=== PATIENT | male | born 1995 | race Caucasian/White ===

== ENCOUNTER → 2018-06-10 | Outpatient (CLI) | payer BC, OTHER ==
--- NOTE | 2018-06-10 21:22 | CT ---
EXAMINATION TYPE: CT abdomen wo con DATE OF EXAM: 06/10/2018 HISTORY: hematuria/rt flank pain per order. History of small left kidney per patient. CT DLP: 191 mGycm. Automated Exposure Control for Dose Reduction was Utilized. TECHNIQUE: CT scan of the abdomen is performed without oral or IV contrast. COMPARISON: CT abdomen and pelvis July 17, 2011 FINDINGS: Within the limitations of a non-contrast study, the following observations are made. LUNG BASES: No significant abnormality is appreciated. LIVER/GB: Contracted gallbladder incidentally noted. Liver is mildly enlarged PANCREAS: No significant abnormality is seen. SPLEEN: No significant abnormality is seen. ADRENALS: No significant abnormality is seen. KIDNEYS: Left kidney is not visualized similar prior study. No right-sided renal calculi or hydroneph rosis is present, compensatory hypertrophy is felt present BOWEL: Normal-appearing appendix is seen from base of cecum. There is no suspicious small or large rick wel dilatation. LYMPH NODES: No greater than 1cm abdominal lymph nodes are appreciated. OSSEOUS STRUCTURES: Bilateral pars defects L5 level without significant spondylolisthesis. OTHER: No significant additional abnormality is seen. IMPRESSION: Absent or atrophic left kidney redemonstrated. No right-sided renal calculus or hydroneph rosis.
== END | disposition home or self-care (01) ==
LOC: RADCTMAIN 18:26
PROVIDERS: ATTEND Family Medicine
DX: R10.9 Unspecified abdominal pain (principal)
CPT/HCPCS: 74150

== ENCOUNTER 2019-01-18 21:14 | Emergency (ER) | payer BC, OTHER ==
--- NOTE | 2019-01-18 22:08 | ED ---
Chest Pain HPI - General Chief Complaint: Chest Pain Stated Complaint: Rib Pain, ROBERT Time Seen by Provider: 01/18/19 21:28 Source: patient Mode of arrival: ambulatory Limitations: no limitations - History of Present Illness Initial Comments: This patient is a 23-year-old presents to [facility] man who presents with left- sided pleuritic chest pain that started approximately an hour ago while he was playing video games. Patient denies trauma. He states that the pain is sharp, mild however when he takes a deep breath the pain becomes moderate. It also sometimes worse with movement . He indicates the lateral aspect of the left chest at the anterior axillary line. Below the level of the nipple. Patient has not noted any other worsening or relieving factors. He has not had any associated symptoms. The patient declines analgesia at my initial history and physical MD Complaint: chest pain Onset/Timin -: hour(s) Onset: during rest Pain Location: left chest Severity: moderate Quality: sharp Consistency: constant Improves With: nothing Worsens With: inspiration Treatments Prior to Arrival: none - Related Data Previous Rx's Medication Instructions Recorded Ibuprofen 800 mg PO TID #20 tablet 01/18/19 Allergies Allergy/AdvReac Type Severity Reaction Status Date / Time amoxicillin Allergy Rash/Hives Verified 01/18/19 22:56 Review of Systems ROS Statement: Those systems with pertinent positive or pertinent negative responses have been documented in the HPI. ROS Other: All systems not noted in ROS Statement are negative. Constitutional: Denies: fever, chills Respiratory: Denies: cough, dyspnea Cardiovascular: Reports: as per HPI, chest pain. 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 History of Any Multi-Drug Resistant Organisms: MRSA Date of last positivie culture/infection: 07/04/16 MDRO Source:: LEFT KNEE Additional Past Surgical History / Comment(s): VEROCELE Additional Past Anesthesia/Blood Transfusion Reaction / Comment(s): takes longer to take affect Past Psychological History: No Psychological Hx Reported Smoking Status: Never smoker Past Alcohol Use History: Rare Past Drug Use History: Marijuana - Past Family History Mother Family Medical History: No Reported History General Exam Limitations: no limitations General appearance: alert, in no apparent distress Head exam: Present: atraumatic, normocephalic Eye exam: Present: normal appearance. Absent: scleral icterus, conjunctival injection ENT exam: Present: normal oropharynx Neck exam: Present: normal inspection Respiratory exam: Present: normal lung sounds bilaterally. Absent: respiratory distress, wheezes, rales, rhonchi, stridor, chest wall tenderness, accessory muscle use, decreased breath sounds, prolonged expiratory Cardiovascular Exam: Present: regular rate, normal rhythm, normal heart sounds. Absent: systolic murmur, diastolic murmur, rubs, gallop GI/Abdominal exam: Present: soft. Absent: distended, tenderness, guarding, rebound, organomegaly, mass Extremities exam: Present: normal inspection, normal capillary refill. Absent: pedal edema, calf tenderness Back exam: Present: normal inspection. Absent: CVA tenderness (R), CVA tenderness (L) Skin exam: Present: warm, dry, intact, normal color. Absent: rash Course Vital Signs 01/18/19 21:22 Temperature 98.9 F Pulse Rate 70 Respiratory 18 Rate Blood Pressure 139/81 O2 Sat by Pulse 98 Oximetry Disposition Clinical Impression: Pleuritic chest pain Disposition: HOME SELF-CARE Condition: Good Instructions (If sedation given, give patient instructions): Pleurisy (DC) Prescriptions: Ibuprofen 800 mg PO TID #20 tablet Is patient prescribed a controlled substance at d/c from ED?: No Referrals: None,Stated [Primary Care Provider] - 1-2 days
--- NOTE | 2019-01-18 22:19 | XR ---
EXAM: XR Chest, 2 Views CLINICAL HISTORY: Pain TECHNIQUE: Frontal and lateral views of the chest. COMPARISON: No relevant prior studies available. FINDINGS: Lungs: Unremarkable. No consolidation. Pleural space: Unremarkable. No pneumothorax. Heart: Unremarkable. No cardiomegaly. Mediastinum: Unremarkable. Bones/joints: Unremarkable. IMPRESSION: Normal chest x-rays.
[2019-01-18 23:01] LABS: ALT 21 U/L (21-72); AST 35 U/L (17-59); Albumin 4.7 g/dL (3.5-5.0); Alkaline Phosphatase 67 U/L (38-126); Anion Gap 9 mmol/L; Blood Urea Nitrogen 17 mg/dL (9-20); Calcium 10.3 mg/dL (8.4-10.2); Carbon Dioxide 25 mmol/L (22-30); Chloride 106 mmol/L (98-107); Glucose 95 mg/dL (74-99); Potassium 3.7 mmol/L (3.5-5.1); Sodium 140 mmol/L (137-145); Total Bilirubin 0.5 mg/dL (0.2-1.3); Total Protein 7.5 g/dL (6.3-8.2)
[2019-01-18] MEDS ORDERED: IBUPROFEN 400 MG TAB PO STA (23:12)
[2019-01-18] MEDS ORDERED: HYDROcodone/APAP 5-325MG 1 EACH TAB PO STA (23:23)
[2019-01-18 23:37] VITALS: BP 131/84; PULSE 55; RESP 18; TEMP 98.8
== END 2019-01-18 23:43 | disposition home or self-care (01) ==
LOC: EC 21:14
DX: R07.81 Pleurodynia (principal); Z86.14 Personal history of Methicillin resistant Staphylococcus aureus infection; Z88.0 Allergy status to penicillin
CPT/HCPCS: 36415; 71046; 80053; 85379; 93005; 99285

== ENCOUNTER 2019-08-21 09:03 | Day surgery (SDC) | payer BC ==
[2019-08-16 14:52] VITALS: BMI 25.7
[~2019-08-21 09:03] MED LIST: LACTATED RINGERS 1,000 ML IV SCH; LIDOCAINE 1% 20 ML VIAL (10MG/ML) FOR IV START INTRADERMA PRN
[2019-08-21 09:43] VITALS: TEMP 98.8
[2019-08-21] MEDS ORDERED: LIDOCAINE 1% INJ 10MG/ML (20 ML MDV) ONE (10:03)
[2019-08-21] MEDS ORDERED: PROPOFOL 10 MG/ML 20 ML VIAL IV ONE (10:03)
--- NOTE | 2019-08-21 10:11 | P.GSHP ---
History of Present Illness H&P Date: 08/21/19 Chief Complaint: GI bleed This a 24-year-old male who presents today for colonoscopy. He's had issues with GI bleed. He's had melanotic stools. 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 SX INTERVENTION FOR STAPH(MRSA) IN LT KNEE Additional Past Anesthesia/Blood Transfusion Reaction / Comment(s): takes longer to take affect Smoking Status: Never smoker - Past Family History Mother Family Medical History: No Reported History Medications and Allergies Home Medications Medication Instructions Recorded Confirmed Type No Known Home Medications 08/16/19 08/21/19 History Allergies Allergy/AdvReac Type Severity Reaction Status Date / Time amoxicillin Allergy Rash/Hives Verified 08/21/19 09:37 Surgical - Exam Vital Signs Temp Pulse Resp BP Pulse Ox 98.8 F 71 16 133/62 98 08/21/19 09:40 08/21/19 09:40 08/21/19 09:40 08/21/19 09:40 08/21/19 09:40 - General well developed, well nourished, no distress - Eyes PERRL - ENT normal pinna - Neck no masses - Respiratory normal expansion - Cardiovascular Rhythm: regular - Abdomen Abdomen: soft, non tender Assessment and Plan Assessment: GI bleed. We'll perform colonoscopy.
--- NOTE | 2019-08-21 10:23 | P.OP ---
Date of Procedure: 08/21/19 Preoperative Diagnosis: GI bleed Postoperative Diagnosis: Internal hemorrhoids Procedure(s) Performed: Colonoscopy Anesthesia: MAC Surgeon: Ady Chris Pathology: none sent Condition: stable Disposition: PACU Description of Procedure: Patient's placed on the endoscopy table in the lateral position. He received IV sedation. Digital rectal exam was performed which revealed internal hemorrhoids. The flexible colonoscope was then placed patient anus and passed throughout the entire colon. The ileocecal valve was visualized. The cecum, ascending and transverse colon appeared normal. The descending and; appeared normal. The scope was then brought back the rectum and this appeared normal. Scope was withdrawn through the anus and some intraluminal hemorrhage noted. Scope was withdrawn for patient. There was no evidence of any significant GI bleed the colon. It was presumed at his previous GI bleeding is due to internal hemorrhoids.
[2019-08-21 10:27] VITALS: RESP 18
[2019-08-21 10:43] VITALS: BP 115/65; PULSE 62
== END 2019-08-21 11:33 | disposition home or self-care (01) ==
LOC: ORWHC2ENDO 09:03
PROVIDERS: ATTEND Surgery
DX: K64.8 Other hemorrhoids (principal); K92.1 Melena; J45.909 Unspecified asthma, uncomplicated; Z88.0 Allergy status to penicillin; Z90.5 Acquired absence of kidney; Z86.14 Personal history of Methicillin resistant Staphylococcus aureus infection
CPT/HCPCS: 45378; J2001; J2704

== ENCOUNTER 2019-10-22 01:08 | Emergency (ER) | payer BC ==
[2019-10-22 01:26] VITALS: BP 130/80; PULSE 54; RESP 15; TEMP 98
[2019-10-22] MEDS ORDERED: BUPIVACAINE (PF) 0.5% 30 ML VIAL MISCELLANE STA (01:41)
[2019-10-22] MEDS ORDERED: ACET/COD 300 MG/30 MG STARTER PACK 6 TAB BTL PO STA (01:42)
[2019-10-22] MEDS ORDERED: KETOROLAC 30 MG/ML 1 ML VIAL IM STA (01:59)
--- NOTE | 2019-10-22 02:01 | ED ---
ENT HPI - General Chief complaint: Dental/Oral Stated complaint: Dental Pain Time Seen by Provider: 10/22/19 01:32 Source: patient Mode of arrival: ambulatory Limitations: no limitations - History of Present Illness Initial comments: 24-year-old male patient presents to the emergency department today for evaluation of right lower dental pain. Patient states he had a root canal performed 3 days ago. Patient states he started developing pain to the same area earlier today. Patient states the pain has significant only worsened. States he has taken multiple doses of ibuprofen without relief. Denies any fever or chills. Denies any facial swelling. Denies nausea or vomiting. Denies any trismus or difficulty swallowing. - Related Data Home Medications Medication Instructions Recorded Confirmed Clindamycin HCl 300 mg PO Q6HR 10/22/19 10/22/19 Allergies Allergy/AdvReac Type Severity Reaction Status Date / Time amoxicillin Allergy Rash/Hives Verified 10/22/19 01:26 Review of Systems ROS Statement: Those systems with pertinent positive or pertinent negative responses have been documented in the HPI. ROS Other: All systems not noted in ROS Statement are negative. 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 SX INTERVENTION FOR STAPH(MRSA) IN LT KNEE Additional Past Anesthesia/Blood Transfusion Reaction / Comment(s): takes longer to take affect Past Psychological History: No Psychological Hx Reported Smoking Status: Current every day smoker Past Alcohol Use History: None Reported Past Drug Use History: None Reported - Past Family History Mother Family Medical History: No Reported History General Exam Limitations: no limitations General appearance: alert, in no apparent distress, other (Physical well- developed, well-nourished adult male patient in no acute distress. Vital signs upon presentation are temperature 98.0F, pulse 54, respirations 15, blood pressure 130/80, pulse ox 99% on room air) Eye exam: Present: normal appearance, PERRL, EOMI. Absent: scleral icterus, conjunctival injection, periorbital swelling ENT exam: Present: normal exam, normal oropharynx, mucous membranes moist, other (Tooth appears normal. There is temperary filling present. No gingival erythema or hyperplasia. No evidence of drainable abscess.) Respiratory exam: Present: normal lung sounds bilaterally. Absent: respiratory distress, wheezes, rales, rhonchi, stridor Cardiovascular Exam: Present: regular rate, normal rhythm, normal heart sounds. Absent: systolic murmur, diastolic murmur, rubs, gallop, clicks Neurological exam: Present: alert, oriented X3, CN II-XII intact Psychiatric exam: Present: normal affect, normal mood Skin exam: Present: warm, dry, intact, normal color. Absent: rash Course Vital Signs 10/22/19 01:22 Temperature 98.0 F Pulse Rate 54 L Respiratory 15 Rate Blood Pressure 130/80 O2 Sat by Pulse 99 Oximetry Procedures - Nerve Block Consent Obtained: verbal consent Local Anesthetic Used: Marcaine 0.5% Amount of anesthesia used: 2 Side: right Intraoral Nerve Block: inferior alveolar Procedure Successful: No Complications: none Patient Tolerated Procedure: well, no complications Medical Decision Making - Medical Decision Making 24-year-old male patient presents to the emergency department for evaluation of right lower dental pain. Physical examination is relatively unremarkable. No trismus or difficulty swallowing. Did perform intraoral nerve block. He is given pain medication is a comatose him. He is instructed to dentistry for recheck as as possible. Return parameters were discussed in detail. He verbalizes understanding and agrees with this plan. Disposition Clinical Impression: Pain, dental, History of root canal procedure Disposition: HOME SELF-CARE Condition: Good Instructions (If sedation given, give patient instructions): Toothache (ED) Additional Instructions: Up with her dentist Wednesday for further evaluation. Take pain medication sparingly for symptom relief. Return to the emergency room immediately for any new, worsening, or concerning symptoms. Is patient prescribed a controlled substance at d/c from ED?: No Referrals: Gill Gibson DO [Primary Care Provider] - 1-2 days Time of Disposition: 02:00
== END 2019-10-22 02:15 | disposition home or self-care (01) ==
LOC: EC 01:08
DX: K08.89 Other specified disorders of teeth and supporting structures (principal); Z98.818 Other dental procedure status; Q60.0 Renal agenesis, unilateral; F17.200 Nicotine dependence, unspecified, uncomplicated; Z88.0 Allergy status to penicillin; Z86.14 Personal history of Methicillin resistant Staphylococcus aureus infection
CPT/HCPCS: 99282; 64400; 96372; J1885

== ENCOUNTER 2019-10-24 08:02 | Emergency (ER) | payer BC ==
[2019-10-24 08:06] VITALS: BP 148/94; PULSE 58; RESP 19; TEMP 97.7
[2019-10-24] MEDS ORDERED: ONDANSETRON ODT 4 MG TAB PO STA (08:16)
--- NOTE | 2019-10-24 08:23 | ED ---
General Adult HPI - General Chief complaint: Nausea/Vomiting/Diarrhea Stated complaint: reaction to meds Time Seen by Provider: 10/24/19 08:09 Source: patient, RN notes reviewed Mode of arrival: ambulatory Limitations: no limitations - History of Present Illness Initial comments: 24-year-old male with a past medical history of asthma, solitary kidney presents to the emergency department for chief complaint of nausea patient states that he has a dental infection and took a steroid for the first time this morning. States that shortly after he started to feel flushed and nauseous. States he did vomit 4 times. Patient states that he feels as flushed and sweaty at this time but does still have some nausea. Patient has not vomited in about an hour. States he was at work and in order to leave work he needed to be seen to have a work note. Denies abdominal pain. Denies fevers. Patient requesting something to drink. Patient has no other complaints at this time including shortness of breath, chest pain, abdominal pain, headache, or visual changes. - Related Data Home Medications Medication Instructions Recorded Confirmed Clindamycin HCl 300 mg PO Q6HR 10/22/19 10/22/19 Allergies Allergy/AdvReac Type Severity Reaction Status Date / Time amoxicillin Allergy Rash/Hives Verified 10/22/19 01:26 Review of Systems ROS Statement: Those systems with pertinent positive or pertinent negative responses have been documented in the HPI. ROS Other: All systems not noted in ROS Statement are negative. 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 SX INTERVENTION FOR STAPH(MRSA) IN LT KNEE Additional Past Anesthesia/Blood Transfusion Reaction / Comment(s): takes longer to take affect Past Psychological History: No Psychological Hx Reported Smoking Status: Current every day smoker Past Alcohol Use History: None Reported Past Drug Use History: Marijuana - Past Family History Mother Family Medical History: No Reported History General Exam Limitations: no limitations General appearance: alert, in no apparent distress Head exam: Present: atraumatic, normocephalic, normal inspection Eye exam: Present: normal appearance, PERRL, EOMI. Absent: scleral icterus, conjunctival injection, periorbital swelling ENT exam: Present: normal exam, mucous membranes moist Neck exam: Present: normal inspection, full ROM. Absent: tenderness, meningismus, lymphadenopathy Respiratory exam: Present: normal lung sounds bilaterally. Absent: respiratory distress, wheezes, rales, rhonchi, stridor Cardiovascular Exam: Present: regular rate, normal rhythm, normal heart sounds. Absent: systolic murmur, diastolic murmur, rubs, gallop, clicks GI/Abdominal exam: Present: soft, normal bowel sounds. Absent: distended, tenderness, guarding, rebound, rigid Neurological exam: Present: alert Skin exam: Present: warm, dry, intact, normal color. Absent: rash Course Vital Signs 10/24/19 08:04 Temperature 97.7 F Pulse Rate 58 L Respiratory 19 Rate Blood Pressure 148/94 O2 Sat by Pulse 99 Oximetry Medical Decision Making - Medical Decision Making Vitals are stable. Patient has vomited 4 times in the past 2 hours which occurred shortly after he took a steroid for the first time. Patient states he is doing much better upon arrival to the ER but does still have some nausea. States that he had to come be seen because in order to leave work he needed a note. Patient's was given sublingual Zofran and is tolerating oral intake. Patient symptoms have improved significant only. Patient will be discharged home to follow up with primary care in stable condition. If he has any wo rsening symptoms she will return here to the emergency department. Disposition Clinical Impression: Nausea, Medication reaction Disposition: HOME SELF-CARE Condition: Good Instructions (If sedation given, give patient instructions): Acute Nausea and Vomiting (ED) Additional Instructions: Please take zofran as needed for nausea. Drink small sips of fluids to prevent vomiting and eat a bland diet consisting of bananas, rice, applesauce and toast. Follow up with primary care in 1-2 days. Return to the emergency department if you have any worsening symptoms. Is patient prescribed a controlled substance at d/c from ED?: No Referrals: Gill Gibson DO [Primary Care Provider] - 1-2 days Time of Disposition: 08:24
[2019-10-24] MEDS ORDERED: ONDANSETRON 4 MG ODT STARTER PACK 2 TAB BTL PO STA (08:51)
== END 2019-10-24 09:03 | disposition home or self-care (01) ==
LOC: EC 08:02
DX: R11.0 Nausea (principal); T38.0X5A Adverse effect of glucocorticoids and synthetic analogues, initial encounter; F17.200 Nicotine dependence, unspecified, uncomplicated; Z88.0 Allergy status to penicillin
CPT/HCPCS: 99283; S0119

== ENCOUNTER 2023-04-03 18:54 | Emergency (ER) | payer BC ==
[2023-04-03] MEDS ORDERED: diphenhydrAMINE 50 MG/ML 1 ML VIAL IVP STA (19:26)
[2023-04-03] MEDS ORDERED: FAMOTIDINE 20 MG/2 ML VIAL IV STA (19:26)
[2023-04-03] MEDS ORDERED: methylPREDNISolone SOD SUCCI 125 MG/2 ML VIAL IV STA (19:26)
--- NOTE | 2023-04-03 19:26 | ED ---
General Adult HPI - General Chief complaint: Allergic Reaction Stated complaint: Allergic Reaction/ROBERT Time Seen by Provider: 04/03/23 19:07 Source: patient, RN notes reviewed, old records reviewed Mode of arrival: ambulatory Limitations: no limitations - History of Present Illness Initial comments: 27-year-old male presenting with suspected ALLERGIC reaction. Just prior to arrival the patient had developed sudden onset diffuse raised erythematous rash and itching, difficulty breathing and one episode of vomiting. He states he had eaten beef and chocolate. Which is eaten many times in the past without ALLERGIC symptoms. Patient is in extremis at the time of arrival and history is limited. - Related Data Previous Rx's Medication Instructions Recorded EPINEPHrine (Auto Inject) [Epipen] 0.3 mg IM ONCE PRN #2 each 04/03/23 Famotidine [Pepcid] 20 mg PO DAILY #7 tablet 04/03/23 diphenhydrAMINE [Benadryl] 25 mg PO TID #21 capsule 04/03/23 predniSONE 50 mg PO DAILY #5 tab 04/03/23 Allergies Allergy/AdvReac Type Severity Reaction Status Date / Time amoxicillin Allergy Rash/Hives Verified 04/03/23 19:48 Review of Systems ROS Statement: Those systems with pertinent positive or pertinent negative responses have been documented in the HPI. ROS Other: All systems not noted in ROS Statement are negative. 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 SX INTERVENTION FOR STAPH(MRSA) IN LT KNEE Additional Past Anesthesia/Blood Transfusion Reaction / Comment(s): takes longer to take affect Past Psychological History: No Psychological Hx Reported Past Alcohol Use History: None Reported Past Drug Use History: Marijuana - Past Family History Mother Family Medical History: No Reported History General Exam Limitations: no limitations General appearance: alert, in distress Head exam: Present: atraumatic, normocephalic Eye exam: Present: PERRL, conjunctival injection ENT exam: Present: normal oropharynx Respiratory exam: Present: respiratory distress, accessory muscle use, decreased breath sounds Cardiovascular Exam: Present: normal rhythm, tachycardia GI/Abdominal exam: Present: soft. Absent: distended, tenderness, guarding Extremities exam: Absent: joint swelling, calf tenderness Neurological exam: Present: alert, oriented X3 Psychiatric exam: Present: anxious Skin exam: Present: erythema, urticaria Course Vital Signs 04/03/23 04/03/23 04/03/23 18:58 19:00 19:43 Temperature 98.2 F Pulse Rate 142 H 80 Respiratory 20 36 H 18 Rate Blood Pressure 148/84 153/74 O2 Sat by Pulse 99 99 Oximetry 04/03/23 21:00 Temperature 98.8 F Pulse Rate 91 Respiratory 16 Rate Blood Pressure 149/77 O2 Sat by Pulse 97 Oximetry - Reevaluation(s) Reevaluation #1: 04/03/23 21:57 Further evaluation after the patient had symptoms resolved he does believe this was related to the chocolate bar that he ate. He has never had a previous ALLERGIC reaction to chocolate but when it was he only new food that he has not eaten in some time. Reevaluation #2: 04/03/23 21:57 Patient's feeling well, no dyspnea, no further vomiting, rash has completely resolved. Medical Decision Making - Medical Decision Making Was pt. sent in by a medical professional or institution (, PA, OFFENDER JOB RETENTION SPECIALIST, urgent care, hospital, or longterm...) When possible be specific @ -[No] Did you speak to anyone other than the patient for history (EMS, parent, family, police, friend...)? What history was obtained from this source @ -[No] Did you review nursing and triage notes (agree or disagree)? Why? @ -[I reviewed and agree with nursing and triage notes] Were old charts reviewed (outside hosp., previous admission, EMS record, old EKG, old radiological studies, urgent care reports/EKG's, longterm records)? Report findings @ -[No old charts were reviewed] Differential Diagnosis (chest pain, altered mental status, abdominal pain women, abdominal pain men, vaginal bleeding, weakness, fever, dyspnea, syncope, h eadache, dizziness, GI bleed, back pain, seizure, CVA, palpatations, mental health, musculoskeletal)? @Food ALLERGY, anaphylaxis EKG interpreted by me (3pts min.). @ -[As above] X-rays interpreted by me (1pt min.). @ -[None done] CT interpreted by me (1pt min.). @ -[None done] U/S interpreted by me (1pt. min.). @ -[None done] What testing was considered but not performed or refused? (CT, X-rays, U/S, labs)? Why? @ -[None] What meds were considered but not given or refused? Why? @ -[None] Did you discuss the management of the patient with other professionals (professionals i.e. , PA, OFFENDER JOB RETENTION SPECIALIST, lab, RT, psych nurse, clinical social worker, high school guidance counselor, teacher, international first officer, case work aide)? Give summary @ -[No] Was smoking cessation discussed for >3mins.? @ -[No] Was critical care preformed (if so, how long)? @ -[yes 35 Were there social determinants of health that impacted care today? How? (Homelessness, low income, unemployed, alcoholism, drug addiction, transportation, low edu. Level, literacy, decrease access to med. care, residential, rehab)? @ -[No] Was there de-escalation of care discussed even if they declined (Discuss DNR or withdrawal of care, Hospice)? DNR status @ -[No] What co-morbidities impacted this encounter? (DM, HTN, Smoking, COPD, CAD, Cancer, CVA, ARF, Chemo, Hep., AIDS, mental health diagnosis, sleep apnea, morbid obesity)? @ -[None] Was patient admitted / discharged? Hospital course, mention meds given and route, prescriptions, significant lab abnormalities, going to OR and other per tinent info. @ -0.5-year-old male presents in extremis, he is diffusely erythematous with urticarial rash throughout his entire body. He's in severe respiratory distress tachycardic in the 150s, he's had episodes of vomiting. Patient is given intramuscular IM, IV is established was given Pepcid, Benadryl, Solu-Medrol and IV fluids. He is observed for 3 hours in the emergency department with complete resolution of symptoms. He is very eager for discharge. He has no chest pain, no dyspnea, no abdominal pain or nausea. His rash is completely resolved. He is advised to avoid chocolate and to be specifically careful with dairy. He is prescribed an EpiPen, steroids, Pepcid, Benadryl. Undiagnosed new problem with uncertain prognosis? @ -[No] Drug Therapy requiring intensive monitoring for toxicity (Heparin, Nitro, Insulin, Cardizem)? @ -[No] Were any procedures done? @ -[No] Diagnosis/symptom? @ -[Anaphylaxis, suspect chocolate ALLERGY Acute, or Chronic, or Acute on Chronic? @ -Acute Uncomplicated (without systemic symptoms) or Complicated (systemic symptoms)? @ -[Complicated Side effects of treatment? @ -[No] Exacerbation, Progression, or Severe Exacerbation? @ -[No] Poses a threat to life or bodily function? How? (Chest pain, [place], [place], pneumonia, PE, COPD, DKA, ARF, appy, cholecystitis, CVA, Diverticulitis, Homicidal, Suicidal, threat to staff... and all critical care pts) @ -Yes, anaphylaxis - Lab Data Result diagrams: 04/03/23 19:41 04/03/23 19:41 Lab Results 04/03/23 04/03/23 04/03/23 Range/Units 19:41 19:41 19:41 WBC 9.0 (3.8-10.6) k/uL RBC 5.69 (4.30-5.90) m/uL Hgb 15.0 (13.0-17.5) gm/dL Hct 47.6 (39.0-53.0) % MCV 83.6 (80.0-100.0) fL MCH 26.4 (25.0-35.0) pg MCHC 31.6 (31.0-37.0) g/dL RDW 13.6 (11.5-15.5) % Plt Count 375 (150-450) k/uL MPV 7.6 Neutrophils % 72 % Lymphocytes % 20 % Monocytes % 6 % Eosinophils % 1 % Basophils % 0 % Neutrophils # 6.5 (1.3-7.7) k/uL Lymphocytes # 1.8 (1.0-4.8) k/uL Monocytes # 0.5 (0-1.0) k/uL Eosinophils # 0.1 (0-0.7) k/uL Basophils # 0.0 (0-0.2) k/uL PT 10.1 (9.0-12.0) sec INR 0.9 (<1.2) APTT 23.8 (22.0-30.0) sec Sodium 137 (137-145) mmol/L Potassium 3.6 (3.5-5.1) mmol/L Chloride 104 (98-107) mmol/L Carbon Dioxide 24 (22-30) mmol/L Anion Gap 9 mmol/L BUN 22 H (9-20) mg/dL Creatinine 1.18 (0.66-1.25) mg/dL Est GFR (CKD-EPI)AfAm >90 (>60 ml/min/1.73 sqM) Est GFR (CKD-EPI)NonAf 85 (>60 ml/min/1.73 sqM) Glucose 145 H (74-99) mg/dL Calcium 8.8 (8.4-10.2) mg/dL Total Bilirubin 0.3 (0.2-1.3) mg/dL AST 54 (17-59) U/L ALT 36 (4-49) U/L Alkaline Phosphatase 43 (38-126) U/L Total Protein 6.9 (6.3-8.2) g/dL Albumin 4.1 (3.5-5.0) g/dL Critical Care Time Critical Care Time: Yes Total Critical Care Time: 35 Disposition Clinical Impression: Anaphylaxis, Food allergy Disposition: HOME SELF-CARE Condition: Good Instructions (If sedation given, give patient instructions): Anaphylaxis (ED) Additional Instructions: Please be very careful with chocolate and dairy. Please return to the emergency department with any worsening or changing symptoms. Prescriptions: diphenhydrAMINE [Benadryl] 25 mg PO TID #21 capsule EPINEPHrine (Auto Inject) [Epipen] 0.3 mg IM ONCE PRN #2 each PRN Reason: Anaphylaxis Famotidine [Pepcid] 20 mg PO DAILY #7 tablet predniSONE 50 mg PO DAILY #5 tab Is patient prescribed a controlled substance at d/c from ED?: No Referrals: Gill Gibson DO [Primary Care Provider] - 1-2 days Time of Disposition: 22:02
[2023-04-03 19:56] LABS: Basophils % (A) 0 %; Eosinophils # (A) 0.1 k/uL (0-0.7); Eosinophils % (A) 1 %; HCT 47.6 % (39.0-53.0); Lymphocytes # (A) 1.8 k/uL (1.0-4.8); Lymphocytes % (A) 20 %; MCH 26.4 pg (25.0-35.0); MCHC 31.6 g/dL (31.0-37.0); MCV 83.6 fL (80.0-100.0); Mean Platelet Volume 7.6; Monocytes # (A) 0.5 k/uL (0-1.0); Monocytes % (A) 6 %; Neutrophils # (A) 6.5 k/uL (1.3-7.7); Neutrophils % (A) 72 %; Platelet Count 375 k/uL (150-450); RBC 5.69 m/uL (4.30-5.90); RDW 13.6 % (11.5-15.5)
[2023-04-03 20:31] LABS: INR 0.9 (<1.2); Partial Thromboplastin Time 23.8 sec (22.0-30.0); Prothrombin Time 10.1 sec (9.0-12.0)
[2023-04-03 20:44] LABS: ALT 36 U/L (4-49); AST 54 U/L (17-59); African American GFR (CKD) >90 (>60 ml/min/1.73 sqM); Albumin 4.1 g/dL (3.5-5.0); Alkaline Phosphatase 43 U/L (38-126); Anion Gap 9 mmol/L; Blood Urea Nitrogen 22 mg/dL (9-20); Calcium 8.8 mg/dL (8.4-10.2); Carbon Dioxide 24 mmol/L (22-30); Chloride 104 mmol/L (98-107); Glucose 145 mg/dL (74-99); Non-African American GFR(CKD) 85 (>60 ml/min/1.73 sqM); Potassium 3.6 mmol/L (3.5-5.1); Sodium 137 mmol/L (137-145); Total Bilirubin 0.3 mg/dL (0.2-1.3); Total Protein 6.9 g/dL (6.3-8.2)
[2023-04-03 21:42] VITALS: BP 149/77; PULSE 91; RESP 16; TEMP 98.8
== END 2023-04-03 22:30 | disposition home or self-care (01) ==
LOC: EC 18:54
DX: T78.09XA Anaphylactic reaction due to other food products, initial encounter (principal); J45.909 Unspecified asthma, uncomplicated; F12.90 Cannabis use, unspecified, uncomplicated; Z88.0 Allergy status to penicillin
CPT/HCPCS: 36415; 80053; 85025; 85610; 85730; 99285; 96374; 96375 ×2; 96372; J0171; J1200; J2930; 93005

== ENCOUNTER 2023-08-26 01:53 | Emergency (ER) | payer BC, OTHER ==
[2023-08-26] MEDS ORDERED: DIPH,PERTUS(ACELL)TETVAC-LF 0.5 ML VIAL IM ONE (01:57)
[2023-08-26] MEDS ORDERED: MORPHINE SULFATE 4 MG/ML SYRINGE IV STA ×2 (02:00→03:02)
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
[2023-08-26 02:30] LABS: Basophils # (A) 0.1 k/uL (0-0.2); Basophils % (A) 1 %; Eosinophils # (A) 0.1 k/uL (0-0.7); Eosinophils % (A) 1 %; HCT 48.2 % (39.0-53.0); HGB 15.5 gm/dL (13.0-17.5); Lymphocytes # (A) 3.4 k/uL (1.0-4.8); Lymphocytes % (A) 30 %; MCH 28.2 pg (25.0-35.0); MCHC 32.2 g/dL (31.0-37.0); MCV 87.6 fL (80.0-100.0); Mean Platelet Volume 7.9; Monocytes # (A) 0.3 k/uL (0-1.0); Monocytes % (A) 2 %; Neutrophils # (A) 7.1 k/uL (1.3-7.7); Neutrophils % (A) 64 %; Platelet Count 333 k/uL (150-450); RDW 13.5 % (11.5-15.5); WBC 11.2 k/uL (3.8-10.6)
[2023-08-26 02:35] LABS: INR 0.9 (<1.2); Partial Thromboplastin Time 22.2 sec (22.0-30.0); Prothrombin Time 10.2 sec (10.0-12.5)
[2023-08-26] MEDS ORDERED: SODIUM CHLORIDE 0.9% 1,000 ML IV ONE ×2 (02:40→03:43)
[2023-08-26 02:52] LABS: Appearance,Urine Clear (Clear); Bacteria,Urine Rare /hpf; Bilirubin,Urine Negative (Negative); Blood,Urine Large (Negative); Color,Urine Light Red; Glucose,Urine (UA) Negative (Negative); Ketones,Urine Negative (Negative); Leukocyte Esterase,Urine Negative (Negative); Nitrite,Urine Negative (Negative); PH, Urine 6.5 (5.0-8.0); Protein,Urine 2+ (Negative); RBC,Urine 23 /hpf (0-5); Specific Gravity,Urine 1.004 (1.001-1.035); Squamous Epithelial Cell,Urine <1 /hpf (0-4); Urobilinogen,Urine <2.0 mg/dL (<2.0); WBC,Urine 9 /hpf (0-5)
[2023-08-26 03:02] LABS: ALT 433 U/L (4-49); African American GFR (CKD) 71 (>60 ml/min/1.73 sqM); Albumin 4.9 g/dL (3.5-5.0); Alkaline Phosphatase 62 U/L (38-126); Anion Gap 17 mmol/L; Blood Urea Nitrogen 16 mg/dL (9-20); Calcium 9.4 mg/dL (8.4-10.2); Carbon Dioxide 23 mmol/L (22-30); Chloride 104 mmol/L (98-107); Glucose 160 mg/dL (74-99); Non-African American GFR(CKD) 62 (>60 ml/min/1.73 sqM); Potassium 3.4 mmol/L (3.5-5.1); Sodium 144 mmol/L (137-145); Total Bilirubin 0.4 mg/dL (0.2-1.3)
[2023-08-26 03:06] LABS: Alcohol 266 mg/dL
[2023-08-26 03:10] LABS: Amphetamine Screen,Urine Not Detected (NotDetected); Barbiturate Screen,Urine Not Detected (NotDetected); Benzodiazepines Screen,Urine Not Detected (NotDetected); Cocaine Screen,Urine Detected (NotDetected); Methadone Screen, Urine Not Detected (NotDetected); Opiate Screen,Urine Not Detected (NotDetected); Oxycodone Screen, Urine Not Detected (NotDetected); Phencyclidine Screen,Urine Not Detected (NotDetected); Tricyclic Antidepressant,Urine Not Detected (NotDetected); Urn Cannabinoid Scrn Not Detected (NotDetected)
[2023-08-26 03:16] LABS: AST 904 U/L (17-59)
--- NOTE | 2023-08-26 03:29 | XR ---
EXAM: XR Chest, 1 View CLINICAL HISTORY: ITS.REASON XR Reason: trauma TECHNIQUE: Frontal view of the chest. COMPARISON: No relevant prior studies available. FINDINGS: Lungs: Unremarkable. No consolidation. Pleural space: Unremarkable. No pneumothorax. No pleural effusions. Heart: Unremarkable. No cardiomegaly. Mediastinum: Unremarkable. Normal mediastinal contour. Bones/joints: No acute osseous abnormalities. IMPRESSION: No acute cardiopulmonary disease.
--- NOTE | 2023-08-26 03:33 | XR ---
EXAM: XR Pelvis, 1 or 2 Views CLINICAL HISTORY: ITS.REASON XR Reason: Trauma TECHNIQUE: Frontal view of the pelvis. COMPARISON: No relevant prior studies available. FINDINGS: Bones/joints: No acute osseous abnormalities. Soft tissues: Unremarkable. IMPRESSION: No acute bony pelvic injury.
--- NOTE | 2023-08-26 03:43 | CT ---
EXAM: CT Head Without Intravenous Contrast CLINICAL HISTORY: ITS.REASON CT Reason: trauma TECHNIQUE: Axial computed tomography images of the head/brain without intravenous contrast. CTDI is 45.2 mGy and DLP is 1098 mGy-cm. This CT exam was performed using one or more of the following dose reduction techniques: automated exposure control, adjustment of the mA and/or kV according to patient size, and/or use of iterative reconstruction technique. COMPARISON: No relevant prior studies available. FINDINGS: Brain: Unremarkable. No hemorrhage. No significant white matter disease. No edema. Ventricles: Unremarkable. No ventriculomegaly. Bones/joints: Unremarkable. No acute fracture. Soft tissues: Right frontal soft tissue swelling. Sinuses: Unremarkable as visualized. No acute sinusitis. Mastoid air cells: Unremarkable as visualized. No mastoid effusion. IMPRESSION: Right frontal soft tissue swelling. No acute intracranial abnormality. EXAM: CT Cervical Spine Without Intravenous Contrast CLINICAL HISTORY: ITS.REASON CT Reason: trauma TECHNIQUE: Axial computed tomography images of the cervical spine without intravenous contrast. CTDI is 15.3 mGy and DLP is 521 mGy-cm. This CT exam was performed using one or more of the following dose reduction techniques: automated exposure control, adjustment of the mA and/or kV according to patient size, and/or use of iterative reconstruction technique. COMPARISON: No relevant prior studies available. FINDINGS: Vertebrae: Moderate right convex curvature of the cervical spine. Otherwise alignment is maintained with preservation of vertebral body heights. No acute fracture. Discs/spinal canal/neural foramina: No acute findings. No spinal canal stenosis. Soft tissues: Unremarkable. IMPRESSION: No acute findings in the cervical spine.
--- NOTE | 2023-08-26 03:56 | CT ---
ADDENDUM - Added by Stefan Norris M.D. on 08/26/2023 4:01 AM (-08:00) Discussed with Dr. Melo on 08/26 04:00 (-05:00) EXAM: CT Chest With Intravenous Contrast CLINICAL HISTORY: ITS.REASON CT Reason: trauma TECHNIQUE: Axial computed tomography images of the chest with intravenous contrast. CTDI is 11.6 mGy and DLP is 937.8 mGy-cm. This CT exam was performed using one or more of the following dose reduction techniques: automated exposure control, adjustment of the mA and/or kV according to patient size, and/or use of iterative reconstruction technique. COMPARISON: No relevant prior studies available. FINDINGS: Lungs: Groundglass opacities in the right middle lobe, periphery of the inferior right upper lobe, and an anterior medial left upper lobe consistent with pulmonary contusions. Left base atelectasis. Pleural space: Unremarkable. No pneumothorax. No significant effusion. Heart: Unremarkable. No cardiomegaly. No significant pericardial effusion. No significant coronary artery calcifications. Bones/joints: Unremarkable. No acute fracture. No dislocation. Soft tissues: Unremarkable. Vasculature: Unremarkable. No thoracic aortic aneurysm. Lymph nodes: Unremarkable. No enlarged lymph nodes. IMPRESSION: Groundglass opacities in the right middle lobe, periphery of the inferior right upper lobe, and an anterior medial left upper lobe consistent with pulmonary contusions. EXAM: CT Abdomen and Pelvis With Intravenous Contrast CLINICAL HISTORY: ITS.REASON CT Reason: trauma TECHNIQUE: Axial computed tomography images of the abdomen and pelvis with intravenous contrast. CTDI is 11.6 mGy and DLP is 947 mGy-cm. This CT exam was performed using one or more of the following dose reduction techniques: automated exposure control, adjustment of the mA and/or kV according to patient size, and/or use of iterative reconstruction technique. COMPARISON: No relevant prior studies available. FINDINGS: Lung bases: Unremarkable. No mass. No consolidation. ABDOMEN: Liver: Grade 4 liver laceration involving the right lobe small subcapsular hematoma. Approximately 50% of the right lobe is disrupted in the traumatic injury. Gallbladder and bile ducts: Unremarkable. No calcified stones. No ductal dilation. Pancreas: Unremarkable. No mass. No ductal dilation. Spleen: Unremarkable. No splenomegaly. Adrenals: Unremarkable. No mass. Kidneys and ureters: Absent left kidney. No hydronephrosis. Stomach and bowel: Unremarkable. No obstruction. No mucosal thickening. PELVIS: Appendix: No findings to suggest acute appendicitis. Bladder: Unremarkable. No mass. Reproductive: Unremarkable as visualized. ABDOMEN and PELVIS: Intraperitoneal space: Small volume of hyperdense fluid in the pelvic cul-de-sac consistent with hemoperitoneum. No free air. Bones/joints: Grade 1 anterolisthesis of L5 relative to S1 segment bilateral L5 pars defects. No acute fracture. No dislocation. Soft tissues: Air within the left anterior thigh soft tissues. Vasculature: Unremarkable. No abdominal aortic aneurysm. Lymph nodes: Unremarkable. No enlarged lymph nodes. IMPRESSION: Grade 4 liver laceration involving the right lobe small subcapsular hematoma. Approximately 50% of the right lobe is disrupted in the traumatic injury. Small volume of hemoperitoneum in the pelvis. <MYCVCSECTION> Communications: 08/26/23 04:00 Call Doctor Regarding Traumatic solid organ or bowel injuries, called on 08/26 04:00 (-05:00)
--- NOTE | 2023-08-26 04:07 | CT ---
EXAM: CT Chest With Intravenous Contrast CLINICAL HISTORY: trauma TECHNIQUE: Axial computed tomography images of the chest with intravenous contrast. CTDI is 12 mGy and DLP is 995 mGy-cm. This CT exam was performed using one or more of the following dose reduction techniques: automated exposure control, adjustment of the mA and/or kV according to patient size, and/or use of iterative reconstruction technique. COMPARISON: No relevant prior studies available. FINDINGS: Lungs: Infiltrates in the right middle lobe and inferior lateral aspect of the right upper lobe. No mass. Pleural space: Unremarkable. No pneumothorax. No significant effusion. Heart: Unremarkable. No cardiomegaly. No significant pericardial effusion. No significant coronary artery calcifications. Bones/joints: Acute fracture of the posterior left 11th rib. No dislocation. Soft tissues: Unremarkable. Vasculature: Unremarkable. No thoracic aortic aneurysm. Lymph nodes: Unremarkable. No enlarged lymph nodes. IMPRESSION: Infiltrates in the right upper lobe and right middle lobe. In the setting of trauma, these may represent aspiration or pulmonary contusions. Acute fracture of the posterior left 11th rib. EXAM: CT Abdomen and Pelvis With Intravenous Contrast CLINICAL HISTORY: trauma TECHNIQUE: Axial computed tomography images of the abdomen and pelvis with intravenous contrast. CTDI is 12 mGy and DLP is 1004.1 mGy-cm. This CT exam was performed using one or more of the following dose reduction techniques: automated exposure control, adjustment of the mA and/or kV according to patient size, and/or use of iterative reconstruction technique. COMPARISON: No relevant prior studies available. FINDINGS: Lung bases: Unremarkable. No mass. No consolidation. ABDOMEN: Liver: There are extensive areas of abnormal decreased enhancement within the liver parenchyma, likely representing intraparenchymal hematomas. The largest one in the right lobe measures up to 7.3 cm and diameter. No active bleeding is evident. Gallbladder and bile ducts: Unremarkable. No calcified stones. No ductal dilation. Pancreas: Unremarkable. No mass. No ductal dilation. Spleen: Unremarkable. No splenomegaly. Adrenals: Unremarkable. No mass. Kidneys and ureters: Unremarkable. No solid mass. No hydronephrosis. Stomach and bowel: Unremarkable. No obstruction. No mucosal thickening. PELVIS: Appendix: No findings to suggest acute appendicitis. Bladder: Unremarkable. No mass. Reproductive: Unremarkable as visualized. ABDOMEN and PELVIS: Intraperitoneal space: There is a very small amount of free fluid around the liver. There is also a small amount of free fluid in the pelvis. The fluid is of higher density than simple fluid and this likely represents a small amount of hemoperitoneum. No free air. Bones/joints: No acute fracture. No dislocation. Soft tissues: Abnormal soft tissue air in the left side.. Vasculature: Unremarkable. No abdominal aortic aneurysm. Lymph nodes: Unremarkable. No enlarged lymph nodes. IMPRESSION: Extensive patchy areas of abnormal decreased enhancement within the liver parenchyma, particularly the right lobe. These likely represent intraparenchymal hematomas. Small amount of hemoperitoneum, predominantly in the pelvis. <MYCVCSECTION> Communications: 08/26/23 04:02 Call Doctor Regarding Traumatic solid organ or bowel injuries, called Dr. Alcaraz on 08/26 04:02 (-05:00)
[2023-08-26] MEDS ORDERED: MORPHINE SULFATE 4 MG/ML SYRINGE IVP STA (04:30)
--- NOTE | 2023-08-26 04:34 | XR ---
EXAM: XR Left Femur, 2 Views CLINICAL HISTORY: ITS.REASON XR Reason: trauma TECHNIQUE: Frontal and lateral views of the left femur. COMPARISON: No relevant prior studies available. FINDINGS: Generalized soft tissue swelling. Acute transverse fractures to the mid femoral diaphysis with slight comminution. Gross overriding of the fracture fragments of 10 cm. Bone mineralization within normal limits. No dislocation.. IMPRESSION: Acute transverse fracture of the mid femoral diaphysis with gross overriding of the fracture fragments.
--- NOTE | 2023-08-26 04:36 | XR ---
EXAM: XR Right Forearm, 2 Views CLINICAL HISTORY: ITS.REASON XR Reason: trauma TECHNIQUE: Frontal and lateral views of the right forearm. COMPARISON: No relevant prior studies available. FINDINGS: Bones/joints: Minimally comminuted acute fractures to the proximal diaphysis of both the radius and ulna with slight overriding and lateral displacement of the distal fracture fragments. Bone mineralization within normal limits. No dislocation. Soft tissues: Mild proximal soft tissue swelling. IMPRESSION: Acute fractures to the proximal diaphysis of both the radius and ulna with slight overriding.
[2023-08-26 07:27] VITALS: BP 105/42; PULSE 79; RESP 18; TEMP 97.7
== END 2023-08-26 05:00 | disposition other institution (70) ==
LOC: EDBD → MERGE 01:53 → EC 01:53
DX: S72.8X2A Other fracture of left femur, initial encounter for closed fracture (principal); S52.101A Unspecified fracture of upper end of right radius, initial encounter for closed fracture; S52.001A Unspecified fracture of upper end of right ulna, initial encounter for closed fracture; S22.32XA Fracture of one rib, left side, initial encounter for closed fracture; S36.116A Major laceration of liver, initial encounter; K66.1 Hemoperitoneum; F10.129 Alcohol abuse with intoxication, unspecified; Z23 Encounter for immunization; Z88.0 Allergy status to penicillin; Z91.018 Allergy to other foods; V89.2XXA Person injured in unspecified motor-vehicle accident, traffic, initial encounter; Y92.410 Unspecified street and highway as the place of occurrence of the external cause
CPT/HCPCS: 36415; 93005; 86900; 86901; 80053; 83605; 84484; 85025; 85610; 85730; 86850; 81001; 80306; 80320; 72170; 73552; 73090; 71045; 72125; 70450; 71260; 74177; 90715; 99291; 96374; 96375; 96376; 96361 ×2; 90471; G0390; J2270; J0690; Q9967